=== PATIENT | female | born 1975 | race Caucasian/White ===

== ENCOUNTER 2021-10-04 11:56 | Day surgery (SDC) | payer BC ==
--- NOTE | 2021-10-04 09:27 | PCM.PREANE ---
Preanesthetic Assessment - Procedure Proposed Procedure: Colonoscopy - Anesthesia/Transfusion/Family Hx Anesthesia History: Prior Anesthesia Without Reaction Family History of Anesthesia Reaction: No Transfusion History: No Prior Transfusion(s) Intubation History: Unknown - Review of Systems General: No Symptoms Pulmonary: Cough (has had cough since COVID (Sep 01), patient took both of her inhalers this morning (long acting and albuterol)) Gastrointestinal: Diarrhea (prep induced) Neurological: No Symptoms Other: Reports: Depression, Anxiety - Physical Assessment NPO Status Date: 10/03/21 NPO Status Time: 23:00 Vital Signs: 150/91 HR 110 (Patient had albuterol inhaler this morning) RR 16 Sat 98% 98.7 Height: 1.57 m Weight: 84.1 kg ASA Class: 2 Mental Status: Alert & Oriented x3 Airway Class: Mallampati = 2 Dentition: Reports: Moraida(s), Caries Thyro-Mental Finger Breadths: 2 Mouth Opening Finger Breadths: 2 ROM/Head Extension: Full Lungs: Clear to Auscultation, Normal Respiratory Effort Cardiovascular: Regular Rate, Regular Rhythm, No Murmurs - Lab Values: Labs reviewed on chart and okay to proceed - Allergies Allergies/Adverse Reactions: Allergies Allergy/AdvReac Type Severity Reaction Status Date / Time Pertussis Vaccines Allergy Cannot Verified 10/03/21 14:56 Remember - Acknowledgements Anesthesia Type Planned: MAC Pt an Appropriate Candidate for the Planned Anesthesia: Yes Alternatives and Risks of Anesthesia Discussed w Pt/Guardian: Yes Pt/Guardian Understands and Agrees with Anesthesia Plan: Yes PreAnesthesia Questionnaire HEENT History: Reports: Allergic Rhinitis, Impaired Vision, Sinusitis Cardiovascular History: Reports: High Cholesterol Respiratory History: Reports: Asthma, Sleep Apnea (CPAP) Gastrointestinal History: Reports: Colon Polyp, Gastritis, GERD, Irritable Bowel Syndrome, Other (See Below) Other Gastrointestinal History: DUODENITIS, TUBULAR ADENOMA, HEMATOCHEZIA 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 Musculoskeletal History: Reports: Back Pain, Chronic Neurological History: Reports: Headaches, Chronic Psychiatric History: Reports: Anxiety, Depression Endocrine/Metabolic History: Reports: None Hematologic History: Reports: None Immunologic History: Reports: None Oncologic (Cancer) History: Reports: None Dermatologic History: Reports: None - Infectious Disease History Infectious Disease History: Reports: Novel Coronavirus - Past Surgical History Head Surgeries/Procedures: Reports: None HEENT Surgical History: Reports: Oral Surgery (wisdom teeth) Cardiovascular Surgical History: Reports: None Respiratory Surgical History: Reports: None GI Surgical History: Reports: Colonoscopy, EGD, Hernia Repair/Other (umbilical) Female Surgical History: Reports: Breast Reconstruction, Other (See Below) Other Female Surgeries/Procedures: KIDNEY SURGERY Endocrine Surgical History: Reports: None Neurological Surgical History: Reports: None Musculoskeletal Surgical History: Reports: None Oncologic Surgical History: Reports: None Dermatological Surgical History: Reports: None - SUBSTANCE USE Tobacco Use Status *Q: Never Tobacco User Tobacco Use Within Last Twelve Months: No Second Hand Smoke Exposure: No Days Per Week of Alcohol Use: 1 Number of Drinks Per Day: 1 Total Drinks Per Week: 1 Recreational Drug Use History: No - HOME MEDS Home Medications: Home Meds Albuterol Sulfate [Albuterol Sulfate Hfa] 1 - 2 puff INH Q4H PRN 10/03/21 [History] Cetirizine HCl [Zyrtec] 10 mg PO DAILY 10/03/21 [History] Cholecalciferol (Vitamin D3) [Vitamin D3] 1,000 unit PO DAILY 10/03/21 [History] Escitalopram Oxalate [Lexapro] 20 mg PO DAILY 10/03/21 [History] Fluticasone/Vilanterol [Breo Ellipta 200-25 MCG Inhalation Kit] 1 puff INH DAILY 10/03/21 [History] Ibuprofen 200 - 600 mg PO Q6H PRN 10/03/21 [History] Montelukast [Singulair] 10 mg PO DAILY 10/03/21 [History] Pantoprazole Sodium [Protonix] 40 mg PO DAILY 10/03/21 [History] Pyridoxine HCl (Vitamin B6) [Vitamin B-6] 100 mg PO DAILY 10/03/21 [History] buPROPion [Wellbutrin SR] 150 mg PO DAILY 10/03/21 [History] - CURRENT (IN HOUSE) MEDS Current Meds: Current Medications Lactated Ringer's (Ringers, Lactated) 1,000 mls @ 125 mls/hr IV ASDIRECTED NIA Stop: 10/04/21 23:00 Lidocaine/Sodium Bicarbonate (Lidocaine 1%/Sod Bicarbonate In Ns 8.4% 1 Ml Syringe) 0.25 ml IDERM ONETIME PRN PRN Reason: Prior to IV Start Stop: 10/04/21 18:00 Sodium Chloride (Sodium Chloride 0.9% 10 Ml Syringe) 10 ml FLUSH 0900,2100 NIA Stop: 10/04/21 18:00
--- NOTE | 2021-10-04 11:48 | PCM48HPAN ---
Post Anesthesia Note - EVALUATION WITHIN 48HRS OF ANESTHETIC Vital Signs in Normal Range: Yes Patient Participated in Evaluation: Yes Respiratory Function Stable: Yes Airway Patent: Yes Cardiovascular Function Stable: Yes Hydration Status Stable: Yes Pain Control Satisfactory: Yes Nausea and Vomiting Control Satisfactory: Yes Mental Status Recovered: Yes
[~2021-10-04 11:56] MED LIST: Lactated Ringers 1,000 ML IV SCH; Lactated Ringers 1,000 ML ONE; Lidocaine 1%/Sod Bicarbonate in NS 8.4% 1 ML Syringe IDERM PRN; Midazolam 1 MG/ML 2 ML SDV ONE; Propofol 200 MG/20 ML SDV ONE; Sodium Chloride 0.9% 10 ML Syringe FLUSH SCH; fentaNYL 100 MCG/2 ML SDV ONE
--- NOTE | 2021-10-04 11:59 | PCM.OPNOTE ---
- General Post-Op/Procedure Note Date of Surgery/Procedure: 10/04/21 Operative Procedure(s): colonoscopy Findings: 1. Transverse colon polyp 2. Rectal polyp Pre Op Diagnosis: history of colon polyps and constipation Post-Op Diagnosis: same Anesthesia Technique: MARINA Primary Surgeon: Isabella Toledo Anesthesia Provider: Milady Tucker Pathology: 1. Transverse colon polyp 2. Rectal polyp Fluid Replacement, Intraop: 700 Complications: none Condition: Good
--- NOTE | 2021-10-04 13:55 | PCM.PRNOTE ---
- Free Text/Narrative Note: Operative Report Date of Surgery/Procedure: October 04, 2021 Operative Procedure: Colonoscopy to cecum with polypectomy Pre Op Diagnosis: history of colon polyps and constipation Post-Op Diagnosis: same Surgeon: Isabella Toledo MD Anesthesia Technique: MAC Anesthesia Provider: Milady Tucker CRNA IV Fluid Replacement, Intraop: 700cc Output, Urine Amount: 0cc EBL : None Findings: 1. Transverse colon polyp 2. Rectal polyp 3. Internal hemorrhoids Specimens: 1. Transverse colon polyp 2. Rectal polyp Indication: The patient is a 46 year-old lady who presented to the outpatient clinic requesting colorectal cancer screening. The patient has a history of colon polyps. she also reports symptoms of constipation. We discussed the procedure of a colonoscopy including the polypectomy and biopsy. Risks of bleeding and perforation were discussed, the patient understood and wished to proceed. Written and consent was obtained. Description of the procedure: The patient was brought to the endoscopy suite and placed in the left lateral decubitus position. Appropriate monitors were applied. The patient was given MAC anesthesia. An anorectal examination was performed, revealing no external abnormality. The scope was placed into the rectum and advanced to cecum with minimal difficulty. The patients cecum was entered, and the ileocecal valve and appendiceal orifice were identified and normal. At this point, the scope was withdrawn, paying careful attention to the mucosa. The patient had a good bowel prep. A 3mm flat polyp was noted in the transverse colon and removed with a jumbo cold biopsy forceps. In the rectum, a 3mm flat polyp was removed with a jumbo cold biopsy forceps. The scope was retroflexed and no abnormalities were noted, except for some hemorrhoidal tissue. The scope was placed back in the lumen and the excess air was aspirated. The patient tolerated the procedure well. Complications: none apparent Condition: Good, transported to PACU in stable condition Isabella Toledo MD General Surgery
[2021-10-04 16:30] VITALS: BP 104/71; PULSE 92
== END 2021-10-04 12:49 | disposition home or self-care (01) ==
LOC: JD.SDS 11:56
PROVIDERS: ATTEND Surgery
DX: D12.3 Benign neoplasm of transverse colon (principal); K62.1 Rectal polyp; K59.00 Constipation, unspecified; K64.8 Other hemorrhoids; K21.9 Gastro-esophageal reflux disease without esophagitis; J45.909 Unspecified asthma, uncomplicated; G47.30 Sleep apnea, unspecified; Z98.890 Other specified postprocedural states; Z88.7 Allergy status to serum and vaccine; Z79.899 Other long term (current) drug therapy
CPT/HCPCS: 45380; J2250; J2704; J3010; J7120; 00812